=== PATIENT | female | born 1965 | race Caucasian/White ===

== ENCOUNTER 2020-07-20 07:22 | Outpatient (CLI) | payer BC, SELFPAY ==
--- NOTE | ~2020-07-20 | MM_ITS ---
EXAMINATION: MM screening [facility] BI w tha HISTORY: Screening mammogram TECHNIQUE: Craniocaudal and mediolateral oblique 3-D tomosynthesis images were obtained and synthetic 2-D images were generated. CAD analysis was submitted and interpreted. COMPARISON: 07/18/2019, 07/22/2018, 07/12/2018, 07/09/2017, 07/02/2017 BREAST PARENCHYMAL COMPOSITION: The breasts are heterogeneously dense, which may obscure small masses . FINDINGS: Scattered benign-appearing calcifications are present. There is no evidence of suspicious m ass, calcification, or architectural distortion to suggest malignancy in either breast. There has bee n no suspicious interval change. IMPRESSION: 1. No mammographic evidence of malignancy. 2. Recommend routine screening mammography in one year. BI-RADS Category 2: Benign finding(s). Reviewed, dictated and finalized at location A. A ANALYST
== END 2020-07-20 07:23 | disposition home or self-care (01) ==
LOC: ANHIMG 07:29
PROVIDERS: PCP Family Medicine; Visit Provider Nurse Practitioner
DX: Z12.31 Encounter for screening mammogram for malignant neoplasm of breast (principal)
CPT/HCPCS: 77063; 77067

== ENCOUNTER 2021-01-23 08:52 | Emergency (ER) | payer BC, SELFPAY ==
--- NOTE | ~2021-01-23 | CT_ITS ---
EXAMINATION: CT abdomen pelvis wo con DATE: 01/23/2021 09:30 INDICATION: Left flank pain. Nausea and vomiting. TECHNIQUE: Computed tomography (CT) of the abdomen and pelvis was performed without intravenous contr ast. Automated exposure control and iterative reconstruction technique were employed. Exam dose: 519 .51 mGy-cm total exam DLP. COMPARISON: 04/09/2008 CT abdomen FINDINGS: Linear discoid atelectasis or scarring in the left lower lobe and to a lesser extent medial segment of the middle lobe. Heart size is normal. No pericardial or pleural effusion. The liver, gallbladder, bile ducts, spleen, pancreas, pancreatic duct, and adrenal glands are unremar kable. No right renal mass lesion or right urinary tract calculus or hydroureteronephrosis. No left renal mass lesion is evident. Approximately 6 mm left lower pole nonobstructing renal calculus with attenuation of [address] u nits. Approximately 4 mm proximal left ureteral calculus at L3-4 level, with mild proximal left hydroureter onephrosis. The urinary bladder, uterus and adnexal areas are unremarkable. Normal caliber of the abdominal aorta. No intraperitoneal or retroperitoneal or pelvic mass lesion or adenopathy or ascites. Normal appendix. There are diverticula of left and right colon; no evidence of diverticulitis. No bowel obstruction, bowel wall thickening, pneumatosis or intraperitoneal free air. 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 Prominent degenerative change at the apophyseal joints of the lower lumbar spine with associated grad e 1 anterolisthesis at L4-5. No suspicious osteolytic or osteoblastic lesions are noted. IMPRESSION: Approximately 4 mm obstructing proximal left ureteral calculus at L3-4 level, with proxi mal mild left hydroureteronephrosis 6 mm nonobstructing lower pole left renal calculus Diverticulosis of left and right colon; no CT evidence of diverticulitis Reviewed, dictated and finalized at Location A. Reviewed, dictated and finalized at location A. IMPRESSION: Approximately 4 mm obstructing proximal left ureteral calculus at L3-4 level, with proximal mild left hydroureteronephrosis 6 mm nonobstructing lower pole left renal calculus Diverticulosis of left and right colon; no CT evidence of diverticulitis
--- NOTE | ~2021-01-23 | XR_ITS ---
XR abdomen/kub 1V DATE: 01/23/2021 09:43 INDICATION: Kidney stone TECHNIQUE: AP projection COMPARISON: 01/23/2021 CT abdomen pelvis noncontrast examination FINDINGS: An approximately 6 mm lower pole left renal calcified calculus. Approximately 4 mm calcified calculus overlying the left ureter at the L3-4 level. No visceromegaly is evident. The psoas shadows are intact. No bowel obstruction is evident. IMPRESSION: Approximately 4 mm calcified calculus of proximal left ureter at L3-4 level 6 mm calcified lower pole left renal calcified calculus Reviewed, dictated and finalized at Location A. Reviewed, dictated and finalized at location A. IMPRESSION: Approximately 4 mm calcified calculus of proximal left ureter at L3 -4 level 6 mm calcified lower pole left renal calcified calculus
[2021-01-23 08:57] VITALS: BP 102/40; PULSE 60; RESP 24; TEMP 36.4; O2SAT 100
[2021-01-23 09:02] VITALS: BP 94/58; PULSE 56; RESP 22; O2SAT 100
[2021-01-23] MEDS: ONDANSETRON INJ 4 MG/2 ML VIAL IV PUSH (09:04)
[2021-01-23] MEDS: SODIUM CHLORIDE 0.9% IV 1,000 ML 999 ML IV CONT (09:04)
--- NOTE | 2021-01-23 09:04 | ED.ABDPAIN ---
HPI - Abdominal Pain General Chief Complaint: Abdominal Pain Stated Complaint: ABD PAIN Time Seen by Provider: 01/23/21 08:57 Source: RN notes reviewed History of Present Illness HPI narrative: Patient presents to emergency department from home for left-sided flank pain. Patient states pain began suddenly this morning. Pain is located left flank radiates around to the left side of the abdomen described as sharp and stabbing. States is associated with nausea. She denies any fevers or chills, chest pain, shortness of breath vomiting diarrhea or any other symptoms. States she took no pain medications at home for the symptoms Related Data Allergies Allergy/AdvReac Type Severity Reaction Status Date / Time Penicillins Allergy Intermediate Unknown Verified 01/23/21 09:01 ciprofloxacin Allergy Unknown Skin Verified 01/23/21 09:01 Reaction penicillin V Allergy Unknown Nausea Verified 01/23/21 09:01 Sulfa (Sulfonamide Allergy Unknown Nausea Verified 01/23/21 09:01 Antibiotics) Review of Systems Review of Systems: Narrative: Gen.: Denies fevers or chills ENT: Denies congestion Respiratory: Denies shortness of breath or cough CV: Denies chest pain or palpitations GI: See HPI denies burning, urgency, frequency or hematuria Musculoskeletal: Denies back pain or muscle pain Neuro: Denies numbness, tingling, weakness or focal weakness Skin: Denies rash Except as documented, all other systems reviewed and negative FOR[facility]LY [facility] Past Medical History Medical History (Updated 01/23/21 @ 10:39 by Ezekiel Rod DO) IBS (irritable bowel syndrome) Social History Social History Smoking status: Never smoker Gender identity (if verbalized by the patient): Female Exam Narrative: Exam Narrative: APPEARANCE: No acute distress, nontoxic, resting in bed HEENT: Normocephalic, atraumatic, OMM RESPIRATORY: No respiratory distress, clear to auscultation bilaterally with no rhonchi wheezing or rales CARDIOVASCULAR: RRR s murmur ABDOMINAL: Soft nondistended tender palpation left lower quadrant left lower quadrant no tenderness right upper quadrant right lower quadrant no rebound or guarding, MUSCULOSKELETAl: Moves all extremities. No clubbing, cyanosis or edema. NEURO: Awake and alert. Following commands, speech normal, no focal deficits SKIN:: Warm, dry. Normal Color PSYCHIATRIC: Normal affect/mood Course Course Emergency Course: Called and discussed with Dr. Seymour saravia presentation work-up agrees with plan for discharge to follow-up as an outpatient Patient states her pain is much improved at this time Discussed with patient results of workup and diagnosis. Discussed need for follow-up with primary care, proper use of medication, and reasons to return to the emergency department. Patient understands and agrees to current treatment plan Vital Signs Vital signs: Vital Signs Temperature 97.6 F 01/23/21 08:57 Pulse Rate 60 01/23/21 08:57 Respiratory Rate 24 H 01/23/21 08:57 Blood Pressure 102/40 L 01/23/21 08:57 Pulse Oximetry 100 01/23/21 08:57 Temperature 97.6 F 01/23/21 09:35 Pulse Rate 56 L 01/23/21 09:02 Respiratory Rate 22 H 01/23/21 09:02 Blood Pressure 94/58 L 01/23/21 09:02 Pulse Oximetry 100 01/23/21 09:02 MDM - Abdominal Pain Lab Data Result diagrams: 01/23/21 09:16 01/23/21 09:16 Labs: Lab Results 01/23/21 01/23/21 01/23/21 Range/Units 09:16 09:16 09:16 WBC 6.5 (4.5-10.0) K/mm3 RBC 4.41 (4.2-5.4) M/mm3 Hgb 13.5 (12.0-15.0) g/dL Hct 40.4 (37.0-47.0) % MCV 91.6 (80-100) fl MCH 30.6 (26-34) pg MCHC 33.4 (32-36) g/dl RDW 13.2 (11.5-14.5) % Plt Count 202 (150-375) k/mm3 MPV 10.7 H (7.4-10.4) fl Immature Gran % (Auto) 0.5 (0-0.5) % Neut % (Auto) 57.6 (45.5-73.1) % Lymph % (Auto) 32.0 (18.3-44.2) % [place] % (Auto) 7.0 (2.6-8.5)
[2021-01-23] MEDS: KETOROLAC 30 MG/ML VIAL (*BKC) IV PUSH (09:05)
[2021-01-23 09:28] LABS: Basophils Absolute Auto 0.1 K/mm3 (0.0-0.1); Basophils Percent Auto 0.9 % (0.2-1.2); Eosinophils Absolute Auto 0.1 K/mm3 (0-0.3); Hematocrit 40.4 % (37.0-47.0); Hemoglobin 13.5 g/dL (12.0-15.0); Immature Granulocyte Absolute 0.03 K/mm3 (0.00-0.031); Immature Granulocyte Percent A 0.5 % (0-0.5); Lymphocytes Absolute Auto 2.07 K/mm3 (0.9-3.2); Mean Corpuscular HGB Conc 33.4 g/dl (32-36); Mean Corpuscular Hemoglobin 30.6 pg (26-34); Mean Corpuscular Volume 91.6 fl (80-100); Mean Platelet Volume 10.7 fl (7.4-10.4); Monocytes Absolute Auto 0.5 K/mm3 (0.1-0.6); Neutrophils Absolute Auto 3.7 K/mm3 (1.3-6.7); Neutrophils Percent Auto 57.6 % (45.5-73.1); Platelet Count Result 202 k/mm3 (150-375); Red Blood Count 4.41 M/mm3 (4.2-5.4); Red Cell Distribution Width 13.2 % (11.5-14.5); White Blood Count 6.5 K/mm3 (4.5-10.0)
[2021-01-23 09:35] VITALS: TEMP 36.4
[2021-01-23 09:44] LABS: Alanine Aminotransferase 24 U/L (4-35); Albumin Level 3.7 g/dL (3.5-5.1); Alkaline Phosphatase 87 U/L (38-126); Anion Gap 8 mmol/L (8-16); Aspartate Amino Transferase 27 U/L (14-36); Bilirubin,Total 0.3 mg/dL (0.2-1.3); Blood Urea Nitrogen 16 mg/dL (7-17); Carbon Dioxide 21 mmol/L (22-30); Chloride 110 mmol/L (98-107); Estimated CRCL calculation 55 ml/min; Estimated Glomerular Filt Rate 58; Glucose 202 mg/dL (65-105); Lipase 77 U/L (23-300); Potassium 4.2 mmol/L (3.4-5.0); Sodium 139 mmol/L (137-145)
--- NOTE | 2021-01-23 10:00 | PC.NURSE ---
Called to patients room and states her right arm hurts around IV site. IV flushed great at this time and no complaints. No swelling noted at this time. Offered patient several times to replace IV but patient refuses.
[2021-01-23 10:02] LABS: Add Urine Microscopic? YES; Amorphous Sediment Urine Few; Appearance Urine Cloudy (Clear); Bacteria Urine Trace /hpf; Bilirubin Urine Negative (Negative); Blood Urine 3+ (Negative); Color Urine Yellow (Yellow); Glucose Urine UA 2+ mg/dL (Negative); Ketones Urine Trace mg/dL (Negative); Leukocyte Esterase Ur Negative LEU/UL (Negative); Mucus Urine Rare /lpf; Nitrate Urine Negative (Negative); Protein Urine 1+ mg/dL (Negative); RBC Urine >75 /hpf (0-2); Specific Grav Ur 1.023 (1.001-1.035); Urobilinogen Urine Negative mg/dL (<2.0)
[2021-01-23 10:46] VITALS: BP 103/58; PULSE 82; RESP 18; O2SAT 100
[2021-01-23] MEDS: TAMSULOSIN HCL 0.4 MG CAPSULE PO (11:00)
--- NOTE | 2021-01-23 11:09 | PC.NURSE ---
IV removed at this time pending discharge. Noted right arm to be swollen and tight with fluid infiltration. Dr. Rod notified and assessed arm. Americo wrap applied at this time and elevated on pillow.
[2021-01-23 12:14] VITALS: BP 103/58; PULSE 83; RESP 17; O2SAT 100
--- NOTE | 2021-01-23 12:25 | PC.NURSE ---
Right arm noted to have decreased in swelling, pain and tightness after devin wrap. Patient discharged home per Dr. Rod.
== END 2021-01-23 12:26 | disposition home or self-care (01) ==
PROVIDERS: Emergency Provider Emergency Medicine; PCP Family Medicine
DX: N13.2 Hydronephrosis with renal and ureteral calculous obstruction (principal); K58.9 Irritable bowel syndrome, unspecified
CPT/HCPCS: 36415; 51701; 74018; 74176; 80053; 81001; 83690; 85025; 96361; 96374; 96375; 99284; A9270; J1885; J2405; J7030

== ENCOUNTER → 2021-02-04 12:57 | Outpatient (CLI) | payer BC, SELFPAY ==
--- NOTE | ~2021-02-04 | US_ITS ---
EXAMINATION: US renal BI DATE: 02/04/2021 13:15 INDICATION: Hydronephrosis. TECHNIQUE: Multiple ultrasound grayscale images of the kidneys were obtained. COMPARISON: CT abdomen and pelvis 01/23/2021 FINDINGS: The right kidney measures 10.3 x 4.2 x 5.8 cm. The left kidney measures 10.9 x 4.5 x 4.8 cm. The kidn eys demonstrate normal parenchymal echogenicity. There is a 7 mm stone in left kidney. There is no hy dronephrosis. The bladder is normal. IMPRESSION: 1. No hydronephrosis. 2. Nonobstructing left kidney stone. Reviewed, dictated and finalized at location A.
== END ==
PROVIDERS: PCP Family Medicine; Visit Provider Family Medicine
DX: N13.30 Unspecified hydronephrosis (principal); N20.0 Calculus of kidney
CPT/HCPCS: 76775

== ENCOUNTER → 2021-08-10 14:52 | Outpatient (CLI) | payer BC, SELFPAY ==
--- NOTE | ~2021-08-10 | US_ITS ---
EXAMINATION: US transvaginal DATE: 08/10/2021 15:14 INDICATION: Postmenopausal bleeding. TECHNIQUE: Multiple transvaginal sonographic images of the pelvis were obtained. COMPARISON: CT abdomen and pelvis 01/23/2021 FINDINGS: The uterus measures 7.0 x 3.4 x 4.5 cm. There is no free fluid in the pelvis. The endometrial complex measures 7 mm in thickness. The right ovary measures 1.8 x 1.3 x 2.3 cm. The left ovary measures 2.4 x 1.7 x 1.3 cm. IMPRESSION: 1. Thickened endometrial complex. The differential diagnosis includes endometrial hyperplasia, polyp, and carcinoma. Biopsy is recommended. Reviewed, dictated and finalized at location A. RUCTOR CREELER IMPRESSION: 1. Thickened endometrial complex. The differential diagnosis includes endometri al hyperplasia, polyp, and carcinoma. Biopsy is recommended.
== END ==
PROVIDERS: PCP Family Medicine; Visit Provider Obstetrics & Gynecology Gynecology
DX: N95.0 Postmenopausal bleeding (principal)
CPT/HCPCS: 76830

== ENCOUNTER 2021-09-08 08:06 | Outpatient (CLI) | payer BC, SELFPAY ==
--- NOTE | ~2021-09-08 | MM_ITS ---
EXAMINATION: MM screening [facility] BI w tha HISTORY: Screening TECHNIQUE: Craniocaudal and mediolateral oblique 3-D tomosynthesis images were obtained and synthetic 2-D images were generated. CAD analysis was submitted and interpreted. COMPARISON: Comparison to multiple prior studies sequentially, with oldest reviewed study dated 06/11. BREAST PARENCHYMAL COMPOSITION: The breasts are heterogeneously dense, which may obscure small masses . FINDINGS: There is no evidence of suspicious mass, calcification, or architectural distortion to sugg est malignancy in either breast. There has been no suspicious interval change. IMPRESSION: 1. No mammographic evidence of malignancy. 2. Recommend routine screening mammography in one year. BI-RADS Category 1: Negative Reviewed, dictated and finalized at location A. PARALEGAL
== END 2021-09-08 08:07 | disposition home or self-care (01) ==
LOC: ANHIMG 08:09
PROVIDERS: PCP Family Medicine; Visit Provider Nurse Practitioner
DX: Z12.31 Encounter for screening mammogram for malignant neoplasm of breast (principal)
CPT/HCPCS: 77063; 77067

== ENCOUNTER 2022-12-04 08:36 | Outpatient (CLI) | payer BC, SELFPAY ==
--- NOTE | ~2022-12-04 | MM_ITS ---
EXAMINATION: MM screening [facility] w tha HISTORY: Screening TECHNIQUE: Craniocaudal and mediolateral oblique 3-D tomosynthesis images were obtained and synthetic 2-D images were generated. CAD analysis was submitted and interpreted. COMPARISON: Comparison to multiple prior studies sequentially, with oldest reviewed study dated 06/12. BREAST PARENCHYMAL COMPOSITION: The breasts are heterogeneously dense, which may obscure small masses . FINDINGS: There is a new periareolar mass of the right breast in the lower inner quadrant anteriorly. The left breast is stable without evidence for malignancy. IMPRESSION: 1. New right breast mass, lower inner quadrant anteriorly. 2. Additional mammographic views and possible breast ultrasound are recommended. BI-RADS Category 0: Incomplete: Needs additional imaging evaluation. Reviewed, dictated and finalized at location A. IMPRESSION: 1. New right breast mass, lower inner quadrant anteriorly. 2. Additional mammographic views and possible breast ultrasound are recommended . BI-RADS Category 0: Incomplete: Needs additional imaging evaluation.
== END 2022-12-04 08:37 | disposition home or self-care (01) ==
LOC: ANHIMG 08:38
PROVIDERS: PCP Family Medicine; Visit Provider Nurse Practitioner
DX: Z12.31 Encounter for screening mammogram for malignant neoplasm of breast (principal); R92.8 Other abnormal and inconclusive findings on diagnostic imaging of breast
CPT/HCPCS: 77063; 77067

== ENCOUNTER 2022-12-22 12:26 | Outpatient (CLI) | payer BC, SELFPAY ==
--- NOTE | ~2022-12-22 | MMUS_ITS ---
EXAMINATION: MM diagnostic [facility] RT w tha, US breast RT limited HISTORY: New right breast mass reported in the lower inner quadrant anteriorly on 12/04/2022 screening mammogram TECHNIQUE: Additional 3-D tomosynthesis images of the right breast were performed and synthetic 2-D i mages were generated. CAD analysis was submitted and interpreted. High resolution right subareolar br east ultrasound was performed. COMPARISON: 12/04/2022 bilateral screening mammogram FINDINGS: MAMMOGRAPHIC FINDINGS: Approximately 7 mm benign-appearing circumscribed subareolar mass is noted in the inferomedial subare olar area. ULTRASOUND: 6 mm sonolucency with through transmission posterior enhancement is noted in the subareolar 4:00 area , corresponding to the mammographic finding. IMPRESSION: 1. Benign subareolar 6 mm cyst 2. Routine annual mammographic screening is recommended. BI-RADS Category 2: Benign finding(s). Reviewed, dictated and finalized at location A. IMPRESSION: 1. Benign subareolar 6 mm cyst 2. Routine annual mammographic screening is recommended. BI-RADS Category 2: Benign finding(s).
== END 2022-12-22 12:27 | disposition home or self-care (01) ==
LOC: ANHIMG 12:27
PROVIDERS: PCP Family Medicine; Visit Provider Obstetrics & Gynecology Gynecology
DX: N60.01 Solitary cyst of right breast (principal)
CPT/HCPCS: 76642; 77061; 77065; G0279

== ENCOUNTER 2023-01-31 10:00 | Outpatient (RCR) | payer BC, SELFPAY ==
--- NOTE | 2022-12-27 14:40 | OTOPEVAL1 ---
Assessment and note entered by DANAY Lisa/Linh Evaluation Information Assessment Status Evaluation Diagnosis R UE De Quervain tenosynovitis Subjective Information Patient presents to outpatient OT with a diagnosis of R UE De Quervain tenosynovitis and in a thumb spica splint. Patient reports she woke up a month ago and had pain in thumb over 1st dorsal compartment. Patient reports thumb pain is aggravated by gripping with thumb and gripping with turning such as turning a morrison. Patient reports it is difficult to complete any grasping, lifting including a cup. Reported Pain Level Pain Score 2: Self Report Assessment OT Clinical Summary Caty is a 57 year old R hand dominant female who presents to outpatient OT with a diagnosis of De Quervain tenosynovitis from MD. Patient reports pain with gripping/turning objects while having a sustained pinch with R thumb. 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 Patient would benefit from skilled OT for HEP instruction, modalities, splinting, manual therapy in order to manage pain and increase functional use of R UE. Plan of Care Interventions Therapeutic Exercise,Manual Therapy,Neuro Re- education,Therapeutic Activities,Hot Pack/Cold Pack,Check Out for Orthotic/Pr,Ultrasound,Paraffin OT Services Indicated Yes Treatment Frequency and 1x/week, 5 weeks Duration These treatments will address the objective and functional deficits as defined above. The patient will be advanced safely and appropriately in order for the patient to progress towards his/her prior level of function. Additional exercises will be introduced and as well as a comprehensive home exercise program upon discharge, if needed, ?to ensure carryover of functional gains achieved in the clinic. This treatment plan has been reviewed and agreement upon by the patient.
--- NOTE | 2023-01-31 10:57 | OTOPPROG ---
Assessment and note entered by DANAY Lisa/Linh Evaluation Information Assessment Status Progress Diagnosis R UE De Quervain tenosynovitis Subjective Information Patient presents to outpatient OT with a diagnosis of R UE De Quervain tenosynovitis. Patient has attended Outpatient OT for 4 visits and has immobilized thumb for 4 weeks. Patient reports thumb pain is feeling a little better, is less painful with attempting to hold a cup. Patient reports still feels pain with some pinching tasks. Assessment OT Clinical Summary Caty is a 57 year old R hand dominant female who presents to outpatient OT with a diagnosis of De Quervain tenosynovitis from MD. Patient reports pain is improved with gripping and holding objects, has more pain with pinching tasks. Patient has a positive Geovany test on R UE but reports pain is improved from initial evaluation. Patient would benefit from continued skilled OT for HEP instruction, modalities, splinting, manual therapy in order to manage pain and increase functional use and strengthening when as indicated of R UE. Plan for patient is to follow up in 2 weeks with patient independent with HEP to re-assess pain of thumb. Patient is to initiate Theraputty strengthening program at this point if pain is improved in thumb or follow up with MD if pain is not improved. Plan of Care Interventions Therapeutic Exercise,Manual Therapy,Neuro Re- education,Therapeutic Activities,Hot Pack/Cold Pack,Check Out for Orthotic/Pr,Ultrasound,Paraffin OT Services Indicated Yes Treatment Frequency and Patient is to initiate Theraputty strengthening Duration program at this point if pain is improved in thumb or follow up with MD if pain is not improved. Will keep chart open for 5 weeks, 0-1x/week. These treatments will address the objective and functional deficits as defined above. The patient will be advanced safely and appropriately in order for the patient to progress towards his/her prior level of function. Additional exercises will be introduced and as well as a comprehensive home exercise program upon discharge, if needed, ?to ensure carryover of functional gains achieved in the clinic. This treatment plan has been reviewed and agreement upon by the patient.
--- NOTE | 2023-02-13 12:05 | PCOTNOTE ---
Called patient to check in, patient did not answer at this time. Left a message and will attempt to call patient at later time.
--- NOTE | 2023-02-19 09:53 | PCOTNOTE ---
Called patient to check in, patient did not answer at this time. Left a message to call back.
--- NOTE | 2023-02-19 10:13 | OTOPDC ---
Assessment and note entered by Emelyn Maynard OTR/Linh Evaluation Information Assessment Status Discharge - Pt Not Present Subjective Information Patient presents to outpatient OT with a diagnosis of R UE De Quervains tenosynovitis. Patient has attended Outpatient OT for 4 visits and has immobilized thumb for 6 weeks. Assessment OT Clinical Summary Spoke with patient over the phone who reports thumb is feeling better overall but not feeling back to normal and plans to follow up with MD. Patient is also electing to not continue with Outpatient OT at this time due to insurance costs and attempts at conservative management not helping thumb completely at this time. Will D/C from skilled OT at this time.
== END 2023-02-19 10:39 | disposition home or self-care (01) ==
LOC: ANHGOSHOT 10:00
PROVIDERS: PCP Family Medicine; Visit Provider Family Medicine
DX: M65.4 Radial styloid tenosynovitis [de Quervain] (principal)
CPT/HCPCS: 97018; 97035; 97110; 97140; 97165

== ENCOUNTER 2023-05-28 13:08 | Outpatient (CLI) | payer BC, SELFPAY ==
--- NOTE | ~2023-05-28 | XR_ITS ---
EXAMINATION: XR wrist RT min 3V INDICATION: Right wrist pain TECHNIQUE: Four views of the right wrist are obtained. COMPARISON: 01/31/2011 FINDINGS: Bone alignment is normal. There is no fracture. There is mild osteoarthritis of the first c arpal metacarpal and triscaphe joints. The soft tissues are unremarkable. IMPRESSION: 1. Mild osteoarthritis without acute osseous abnormality. Reviewed, dictated and finalized at location B.
== END 2023-05-28 13:09 | disposition home or self-care (01) ==
LOC: ANHIMG 13:16
PROVIDERS: PCP Family Medicine
DX: M19.031 Primary osteoarthritis, right wrist (principal)
CPT/HCPCS: 73110

== ENCOUNTER → 2023-08-07 09:44 | Outpatient (CLI) | payer BC, SELFPAY ==
--- NOTE | ~2023-08-07 | CT_ITS ---
Non-contrast CT scan of the Abdomen and Pelvis Clinical indication: Left flank pain Technique: 2.5 mm axial scans were obtained through the abdomen and pelvis without intravenous or or al contrast. Dose reduction technique was used on this scan by utilizing automated exposure control a nd iterative reconstruction technique. The dose-length product (DLP) was 784.34 mGy-cm. COMPARISON: 01/23/2021 Findings: Images through the lung bases reveal no abnormalities. Probable punctate nonobstructing right renal stones. 4 mm nonobstructing left renal stone noted. No u reteral stone or hydronephrosis on either side. The liver, spleen, pancreas, gallbladder, and adrenals appear normal. There is no aortic aneurysm. There is no evidence of bowel obstruction. Images through the pelvis were performed. There is no evidence of ascites or lymphadenopathy. Urinary bladder unremarkable. No adnexal mass seen. Impression: Small nonobstructing bilateral renal stones, as detailed above. No other significant findings. Reviewed, dictated and finalized at [facility]. PATIENT Impression: Small nonobstructing bilateral renal stones, as detailed above. No other significant findings.
== END ==
PROVIDERS: PCP Family Medicine; Visit Provider Family Medicine
DX: R10.9 Unspecified abdominal pain (principal); N20.0 Calculus of kidney
CPT/HCPCS: 74176

== ENCOUNTER 2023-08-10 14:51 | Outpatient (CLI) | payer BC, SELFPAY ==
--- NOTE | ~2023-08-10 | DEXA_ITS ---
Bone Density Report Name: VLADIMIR CALVO Age: 57 Sex: Female Ethnicity: White Date of : 1965 Indication: screening for osteoporosis; inflammatory bowel disease; Referring Provider: JOSE BIRCH Study: Bone densitometry was performed. Exam Date: August 10, 2023 Accession number: [id number] Bone Density: Region BMD T-score Z-score Classification AP Spine(L1, L2, L3) 0.748 -2.5 -1.2 Osteoporosis Femoral Neck (Left) 0.659 -1.7 -0.5 Osteopenia Total Hip (Left) 0.782 -1.3 -0.5 Osteopenia Femoral Neck (Right) 0.639 -1.9 -0.7 Osteopenia Total Hip (Right) 0.851 -0.7 0.1 Normal Femoral Neck Mean 0.649 -1.8 -0.6 Osteopenia Total Hip Mean 0.817 -1.0 -0.2 Normal World Health Organization criteria for BMD impression classify patients as: Normal (T-score at or above -1.0), Osteopenia (T-score between -1.0 and -2.5), or Osteoporosis (T-score at or below -2.5). 10-year Fracture Risk: FRAX not reported because: Premenopausal woman Some T-score for Spine Total or Hip Total or Femoral Neck at or below -2.5 Clinical Information Provided by Patient: Has used the following medications: Vitamin D, multi Has the following medical conditions: Inflammatory bowel diseases Patient maximum height was 64.5 No regular weight bearing exercise Onset of menses at age 12 Premenopausal Number of children 1 Impression: The patient's bone mass is within expected range for age, gender and ethnicity. Discussion: BONE DENSITY IS WITHIN EXPECTED LIMITS FOR AGE, SEX AND RACE. Bone density is within expected limits for age, sex and race at all sites measured. The patient should follow a healthful lifestyle (good nutrition with adequate calcium and vitamin D, and appropriate weight-bearing exercise). Follow-Up: Consider a repeat BMD and Vertebral Fracture Assessment (VFA) exam in 2 years or sooner if medically necessary, to reassess this patient's status. Reported by: Dr. Tonny Bauer on 08/13/2023 9:24:00 AM. Reviewed, dictated and finalized at location AWiley MUELLER
== END 2023-08-10 14:52 | disposition home or self-care (01) ==
LOC: CHSIMG 14:53
PROVIDERS: PCP Family Medicine; Visit Provider Family Medicine
DX: Z78.0 Asymptomatic menopausal state (principal); M81.0 Age-related osteoporosis without current pathological fracture; M85.89 Other specified disorders of bone density and structure, multiple sites
CPT/HCPCS: 77080

== ENCOUNTER 2024-01-02 10:02 | Outpatient (CLI) | payer BC, SELFPAY ==
--- NOTE | ~2024-01-02 | MM_ITS ---
EXAMINATION: MM screening [facility] BI w tha HISTORY: Screening mammogram TECHNIQUE: Craniocaudal and mediolateral oblique 3-D tomosynthesis images were obtained and synthetic 2-D images were generated. CAD analysis was submitted and interpreted. COMPARISON: December 22, 2022 diagnostic right mammogram and limited right breast ultrasound December 04, 2022, September 08, 2021 bilateral screening mammogram examinations BREAST PARENCHYMAL COMPOSITION: The breasts are heterogeneously dense, which may obscure small masses . FINDINGS: There is no evidence of suspicious mass, calcification, or architectural distortion to sugg est malignancy in either breast. There has been no suspicious interval change. IMPRESSION: 1. No mammographic evidence of malignancy. 2. Recommend routine screening mammography in one year. BI-RADS Category 1: Negative Reviewed, dictated and finalized at location A.
== END 2024-01-02 10:03 | disposition home or self-care (01) ==
LOC: ANHIMG 10:05
PROVIDERS: PCP Family Medicine; Visit Provider Nurse Practitioner
DX: Z12.31 Encounter for screening mammogram for malignant neoplasm of breast (principal)
CPT/HCPCS: 77063; 77067

== ENCOUNTER 2024-01-22 09:20 | Outpatient (CLI) | payer BC, SELFPAY ==
--- NOTE | ~2024-01-22 | CT_ITS ---
EXAMINATION: CT sinus wo con DATE: 01/22/2024 09:37 INDICATION: Right cheek pain. TECHNIQUE: Computed tomography (CT) of the paranasal sinuses was performed without intravenous contra st. Iterative reconstruction technique was employed. The dose-length product was 404.20 mGy-cm. COMPARISON: None FINDINGS: There is mild mucosal thickening in right frontal recess. There is mild mucosal thickening in the bilateral ethmoid and sphenoid sinuses and right maxillary sinus. Left maxillary sinus is zeke r. 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 Left ostiomeatal unit is patent. The re is rightward deviation of the nasal septum. IMPRESSION: 1. Mild mucosal thickening in the paranasal sinuses with occlusion of right ostiomeatal unit. 2. Rightward deviation of the nasal septum. Reviewed, dictated and finalized at location A. IMPRESSION: 1. Mild mucosal thickening in the paranasal sinuses with occlusion of right ost iomeatal unit. 2. Rightward deviation of the nasal septum.
== END 2024-01-22 09:21 ==
PROVIDERS: PCP Family Medicine; Visit Provider Family Medicine
DX: R51.9 Headache, unspecified (principal); J34.2 Deviated nasal septum
CPT/HCPCS: 70486

== ENCOUNTER 2024-08-25 10:40 | Outpatient (CLI) | payer BC, SELFPAY ==
--- NOTE | ~2024-08-25 | US_ITS ---
EXAMINATION: US pelvic complete w TV INDICATION: Postmenopausal bleeding Comparison:Ultrasound dated 08/10/2021 TECHNIQUE: Multiple transabdominal and endovaginal sonographic images of the pelvis performed. FINDINGS: The uterus measures 8.3 x 2.2 x 4.6 cm. There are nabothian cysts. The endometrial complex measures 3 mm. The right ovary measures 1.5 x 1.1 x 1.6 cm and the left ovary measures 1.6 x 1.1 x 1.1 cm. There ar e small follicles in each ovary. Normal doppler signal in both ovaries. There is no free fluid in the pelvis. There are no abnormal masses seen on either side. IMPRESSION: 1. Unremarkable pelvic ultrasound. Reviewed, dictated and finalized at location B. CONTENT SPECIALIST
== END 2024-08-25 10:41 | disposition home or self-care (01) ==
LOC: ANHIMG 10:42
PROVIDERS: PCP Family Medicine; Visit Provider Obstetrics & Gynecology Gynecology
DX: N95.0 Postmenopausal bleeding (principal)
CPT/HCPCS: 76830; 76856

== ENCOUNTER 2025-01-16 09:51 | Outpatient (CLI) | payer OTHER, SELFPAY ==
--- NOTE | ~2025-01-16 | MM_ITS ---
EXAMINATION: MM screening serena BI w tha HISTORY: Screening TECHNIQUE: Craniocaudal and mediolateral oblique 3-D tomosynthesis images were obtained and synthetic 2-D images were generated. CAD analysis was submitted and interpreted. COMPARISON: Comparison to multiple prior studies sequentially, with oldest reviewed study dated 04/2019. BREAST PARENCHYMAL COMPOSITION: Dense: The breasts are heterogeneously dense, which may obscure small masses FINDINGS: There is no evidence of suspicious mass, calcification, or architectural distortion to sugg est malignancy in either breast. There has been no suspicious interval change. IMPRESSION: 1. No mammographic evidence of malignancy. 2. Recommend routine screening mammography in one year. BI-RADS Category 1: Negative Reviewed, dictated and finalized at location A.
--- OUTSIDE RECORDS SUMMARY | 2025-01-16 10:00 | XMS_ITS | Clinical Summary ---
Author Organization [facility] Address [address] [place] [id number] Care Team Providers Care Collection Specialist Name Role Phone Unavailable Primary Care Provider Unavailabl e Social History Tobacco Use Types Packs/Day Years Used Date Smoking Tobacco: Never Assessed Comments Unknown Sex and Gender Information Value Date Recorded Sex Assigned at Not on file Legal Sex Female 7:59 PM CDT Gender Identity Not on file Sexual Orientation Not on file Plan of Treatment Health Maintenance Due Date Last Done Comments Cervical Cancer Screening Pa p Smear (Age 30 to 64) Every 3 Years 1965 Colorectal Cancer Screening Colonoscopy (10 Years) 1965 Annual Physical 1968 Hepatitis C 1983 DTaP, Tdap and Td Vaccines ( 1 - Tdap) 1984 Cervical Cancer Screening Pa p with HPV Testing (Age 30 to 64) Every 5 Years 1995 Cervical Cancer Screening with HPV 1995 Mammogram Screening 2005 Pneumococcal Vaccine: 50+ Ye ars (1 of 1 - PCV) 2015 Zoster Vaccines (1 of 2) 2015 COVID-19 Vaccine (2023-2 5 season) 2024 Meningococcal B Vaccine Aged Out No l onger eligible based on patient's age to complete this topic Meningococcal Vaccine Aged Out No khanh zahira eligible based on patient's age to complete this topic RSV Immunizations Under 20 Months Aged Out No longer eligible based on patient's age to complete this topic
--- OUTSIDE RECORDS SUMMARY | 2025-01-16 10:00 | XMS_ITS | Clinical Summary ---
Author Organization [facility] Address [address] [facility] Attn: Epic Prelude ADT ANG[place] [address] Care Team Providers Care Marketing Program Coordinator Name Role Phone Milo Herrmann MD Primary Care Provider [phone] Social History Tobacco Use Types Packs/Day Years Used Date Smoking Tobacco: Never Assessed Comments Unknown Sex and Gender Information Value Date Recorded Sex Assigned at Not on file Legal Sex Female 11:43 AM CDT Gender Identity Not on file Sexual Orientation Not on file Plan of Treatment Health Maintenance Due Date Last Done Comments DTAP/TDAP/TD VACCINES (1 - Tdap) 1984 HEPATITIS B VACCINES (1 of 3 - 19+ 3-dose series) 1984 HPV/Cotest (21-29) 1986 HPV/Cotest (30-65) 1995 FIT-DNA Q 3 years 2010 FIT/FOBT Q 1 year 2010 Flex Sig/CT Colonography Q 5 years 2010 ZOSTER VACCINE (1 of 2) 2015 BREAST CANCER SCREENING 07/18/2020 07/18/20 19, 07/18/2019, 07/22/2018, Additional history exists CERVICAL CANCER SCREENING 06/06/2022 PAP SMEAR 06/06/2022 06/06/2019, 0909/2017, 05/25/2017, Additional history exists INFLUENZA VACCINE (#1) 2024 COLORECTAL SCREENING 12/21/2027 12/20/2017 Colorectal Cancer Screening 12/21/2027 Care Teams Marketing Program Coordinator Relationship Specialty Start Date End Date Milo Herrmann MD PCP - General Family Practice 02/24/19
--- OUTSIDE RECORDS SUMMARY | 2025-01-16 10:00 | XMS_ITS | Clinical Summary ---
Author Organization [facility] Address [address], [facility] [address] [place] [address] Phone Care Team Providers Care Pressroom Worker Name Role Phone Caty Fitzgerald MD Unavailable [phone] Jailene Herrmann MD Primary Care Provider [phone] Medications polyethylene glycol (MIRALAX) Powder Use entire bottle of 255 grams of miralax for Colon prep as directed by office. 255 g 12/04/2017 Active Social History Tobacco Use Types Packs/Day Years Used Date Smoking Tobacco: Never Assessed Comments Unknown Sex and Gender Information Value Date Recorded Sex Assigned at Not on file Legal Sex Female 11:16 AM CHANGE MANAGER Gender Identity Not on file Sexual Orientation Not on file Plan of Treatment Health Maintenance Due Date Last Done Comments Hepatitis C Virus (HCV) Screening 1965 TdaP Immunization 1965 Hepatitis B Immunization (1 of 3 - 19+ 3-dose series) 1984 Pap Smear 1986 Cervical Cancer Screening (CCS) 1995 HPV/Cotest 1995 Cologuard 2015 Immunochemical Fecal Occult Blood 2015 Mammogram 2015 Pneumococcal Immunization (5 0+ years) (1 of 1 - PCV) 2015 Zoster Immunization (1 of 2) 2015 Influenza Immunization (#1) 2024 SARS-COV-2 Immunization ( - 2024-25 season) 2024 Colonoscopy 12/21/2027 12/20/2017 Colorectal Cancer Screening 12/21/2027 Respiratory Syncytial Virus (RSV) Immunization (Adult) (1 - 1-dose 75+ series) 2040 12/20/2017 Meningococcal Immunization (ACWY) Aged Out No longer eligible based on patient's age to complete this topic Pneumococcal Immunization Combined Aged Out No longer eligible based on patient's age to complete this topic Rotavirus Immunization Aged Out No lo nger eligible based on patient's age to complete this topic Procedures Procedure Name Priority Date/Time Associated Diagnosis Comments COLONOSCOPY Routine 12/20/2017 from Last 3 Months or Most Recently Relevant to Health Maintenance Results * COLONOSCOPY (12/20/2017) Edvin Felzi DO PROCEDURE/MINOR SURGICAL ORDERA BLES Final Result from Last 3 Months or Most Recently Relevant to Health [place] [address] [place] [address] [facility] Care Teams Pressroom Worker Relationship Specialty Start Date End Date Jailene Herrmann MD [address] [place] [address] PCP - General Family Medicine 12/24/17 Caty Fitzgerald MD [address] [place], [place] [id number] Obstetrics & Gynecology 08/31/17
== END 2025-01-16 09:52 | disposition home or self-care (01) ==
LOC: ANHIMG 09:53
PROVIDERS: PCP Family Medicine; Visit Provider Nurse Practitioner
DX: Z12.31 Encounter for screening mammogram for malignant neoplasm of breast (principal)
CPT/HCPCS: 77063; 77067

== ENCOUNTER 2025-02-12 16:06 | Outpatient (CLI) | payer OTHER, SELFPAY ==
--- NOTE | ~2025-02-12 | XR_ITS ---
AP, oblique, and lateral views of the right great toe CLINICAL HISTORY: Pain FINDINGS: No acute fracture or dislocation seen. Joint spaces are intact. Soft tissues are unremarkab le. IMPRESSION: No acute abnormality seen. Reviewed, dictated and finalized at location . IMPRESSION: No acute abnormality seen.
== END 2025-02-12 16:07 | disposition home or self-care (01) ==
LOC: GOSHIMG 16:06
PROVIDERS: PCP Student in an Organized Health Care Education/Training Program; Visit Provider Student in an Organized Health Care Education/Training Program
DX: M79.674 Pain in right toe(s) (principal)
CPT/HCPCS: 73660